=== PATIENT | male | born 1990 | race Caucasian/White ===

== ENCOUNTER 2024-05-29 12:39 | Emergency (ER) | payer OTHER ==
[~2024-05-29] VITALS: Ht 183.5 cm; Wt 68.2 kg
[2024-05-29 13:15] VITALS: TEMP 98.3
[2024-05-29 13:30] VITALS: BP 125/70; PULSE 98; RESP 14; O2SAT 98
== END 2024-05-29 13:47 | disposition home or self-care (01) ==
LOC: EMS 12:39 → EDBD 12:39 → EMS 13:47
DX: F11.20 Opioid dependence, uncomplicated (principal); F15.10 Other stimulant abuse, uncomplicated; Z59.00 Homelessness unspecified
CPT/HCPCS: 99283; Z7502

== ENCOUNTER 2024-06-27 17:18 | Emergency (ER) | payer OTHER ==
[~2024-06-27] VITALS: Ht 180.3 cm; Wt 155.0 kg
[2024-06-27 17:47] VITALS: TEMP 98.5
[2024-06-27] MEDS ORDERED: NALOXONE HCL 1 MG/ML 2 ML SYRINGE ONE ×2 (18:07→18:18)
[2024-06-27] MEDS: SODIUM CHLORIDE 0.9% 1,000 ML IV ONE (19:08)
[2024-06-27] MEDS: NALOXONE HCL 1 MG/ML 2 ML SYRINGE IVP ONE ×2 (19:08)
[2024-06-27 19:45] LABS: BASOPHILS % (AUTO) 0.5 % (0.0-2.0); EOSINOPHILS % (AUTO) 2.3 % (1.0-6.0); HEMATOCRIT 34.3 % (41-53); HEMOGLOBIN 11.3 g/dL (13.5-17.5); LYMPHOCYTES # (AUTO) 2.9 K/uL (1.0-4.8); LYMPHOCYTES % (AUTO) 43.9 % (22.0-44.0); MEAN CORPUSCULAR HEMOGLOBIN 29.4 pg (26.0-34.0); MEAN CORPUSCULAR VOLUME 89 fL (80-100); MONOCYTES # (AUTO) 0.7 K/uL (0.1-1.0); MONOCYTES % (AUTO) 10.7 % (2.0-9.0); NEUTROPHILS # (AUTO) 2.8 K/uL (1.8-7.7); NEUTROPHILS % (AUTO) 42.6 % (40.0-70.0); PLATELET COUNT (AUTO) 265 K/uL (150-450); RED BLOOD CELL COUNT(AUTO) 3.84 MIL/uL (4.50-5.90); RED CELL DISTRIBUTION WIDTH 14.4 % (11.5-14.5); WHITE BLOOD COUNT (AUTO) 6.6 K/uL (4.5-11.0)
[2024-06-27 19:55] LABS: ANION GAP 8 mmol/L (8-16); CALCIUM, TOTAL 8.3 mg/dL (8.8-10.5); CARBON DIOXIDE 28 mmol/L (22-29); CHLORIDE 109 mmol/L (98-107); CREATININE 1.01 mg/dL (0.60-1.30); GLOMERULAR FILTR. RATE CALC > 60 mL/min (>60); GLUCOSE,RANDOM 81 mg/dL (70-110); POTASSIUM 3.3 mmol/L (3.5-5.1); SODIUM SERUM 145 mmol/L (136-145); UREA NITROGEN, BLOOD 10 mg/dL (7-18)
[2024-06-27 20:01] LABS: ALCOHOL, BLOOD (SERUM) < 3 mg/dL (0-10)
[2024-06-28 05:57] VITALS: BP 110/64; PULSE 54; RESP 16; O2SAT 100
== END 2024-06-28 07:10 | disposition home or self-care (01) ==
LOC: EMS 17:19
DX: T40.2X1A Poisoning by other opioids, accidental (unintentional), initial encounter (principal); Y92.89 Other specified places as the place of occurrence of the external cause
CPT/HCPCS: 99291; 96374; 96361; 80048; 85025; 36415; G0480; J2310; J7030

== ENCOUNTER 2025-07-17 19:03 | Emergency (ER) | payer OTHER ==
[~2025-07-17] VITALS: Ht 182.9 cm; Wt 81.8 kg
[2025-07-17 19:40] VITALS: TEMP 98.3
[2025-07-17] MEDS: KETOROLAC TROMETHAMINE 30 MG/ML VIAL IM ONE (21:00)
[2025-07-18 00:12] VITALS: BP 130/75; PULSE 76; RESP 16; O2SAT 97
== END 2025-07-18 00:08 ==
LOC: EMS 19:03
DX: S62.321A Displaced fracture of shaft of second metacarpal bone, left hand, initial encounter for closed fracture (principal); Z98.890 Other specified postprocedural states; W19.XXXA Unspecified fall, initial encounter; Y93.I9 Activity, other involving external motion; Y92.89 Other specified places as the place of occurrence of the external cause; Y99.9 Unspecified external cause status
CPT/HCPCS: 99283; 73140; 29125; 96372; J1885